=== PATIENT | male | born 1960 | race Caucasian/White ===

== ENCOUNTER 2016-11-22 13:12 | Observation (INO) | payer MEDICAID ==
[2016-11-22] MEDS ORDERED: MIDAZOLAM HCL 2 MG/2 ML SYR IV ONE (14:00)
[2016-11-22] MEDS ORDERED: LACTATED RINGERS 1,000 ML IV SCH ×3 (14:00→16:00)
[2016-11-22] MEDS ORDERED: LIDOCAINE HCL 1% 20 ML VIAL SUBCUT ONE ×2 (14:00→15:48)
[2016-11-22] MEDS ORDERED: FAMOTIDINE IN SALINE, ISO-OSM 20 MG/50 ML PIGGYBACK IV SCH ×2 (14:00→15:48)
[2016-11-22] MEDS ORDERED: ACETAMINOPHEN 1,000 MG/100 ML VIAL IV SCH ×2 (14:00→15:48)
[2016-11-22] MEDS ORDERED: FENTANYL 100 MCG/2 ML VIAL IV PRN (15:48)
[2016-11-22] MEDS ORDERED: ONDANSETRON HCL 4 MG/2 ML VIAL IV PRN ×2 (15:48→18:29)
[2016-11-22] MEDS ORDERED: HYDROmorphone HCL 1 MG/ML SYR IV PRN (15:48)
[2016-11-22 16:59] LABS: A/G RATIO 1.4; ALBUMIN 4.3 g/dL (3.5-5.0); ALKALINE PHOSPHATASE 53 U/L (38-126); ALT 63 U/L (21-72); AST 28 U/L (17-59); BLOOD UREA NITROGEN 16 mg/dL (9-20); CHLORIDE 107 mmol/L (98-107); CREATININE 1.1 mg/dL (0.7-1.3); EST GLOMERULAR FILTRATION RATE > 60 mL/min; GLUCOSE 93 mg/dL (70-100); SODIUM 143 mmol/L (137-145); TOTAL PROTEIN 7.4 g/dL (6.3-8.2)
[2016-11-22 17:11] LABS: TROPONIN I < 0.012 ng/mL (0.00-0.034)
[2016-11-22] MEDS: MORPHINE SULFATE 10 MG/ML SYR IV PRN ×2 (17:18→18:15)
[2016-11-22] MEDS ORDERED: ACETAMINOPHEN 325 MG TABLET PO PRN (18:29)
--- NOTE | 2016-11-22 20:59 | CONSULTATION ---
DATE OF CONSULTATION: 11/22/16 UNION ORGANISER: Valentina Tinoco MD REASON FOR CONSULTATION: Low heart rate. HISTORY OF PRESENT ILLNESS: This is a 55-year-old male who is followed by LUCIA Walsh at [facility], who was brought to the operating room today for removal of a rectal mass. When he was brought back to the post anesthesia care unit, he developed bradycardia in the 30s with hypoxemia in the 80s. The bradycardia was intermittent and lasted several minutes. A nonrebreather mask was placed, and he very quickly thereafter became responsive and appropriate. He states that he was having some facial itching, but otherwise was not having any chest pain or shortness of breath. He is awake, alert and oriented x3, and was answering questions appropriately. He stated he was not having any throat swelling or trouble swallowing. No cough. No abdominal pain. No nausea or vomiting. PAST MEDICAL HISTORY: 1. Untreated sleep apnea. 2. Hypothyroidism. SOCIAL HISTORY: He is a former smoker. He quit 16 years ago. He is . MEDICATIONS Levothyroxine 88 mcg daily. PHYSICAL EXAMINATION VITAL SIGNS: Temperature 30.2, respiratory rate 14, heart rate was 44, then 64. Pulse oxygenation 80% on room air, now 98% on NRBM. Blood pressure 186/84. GENERAL: This is a very pleasant obese male who initially had his eyes closed, but was responsive. He ultimately was fully awake, alert and oriented x3. His cranial nerves 2-12 are grossly intact without focal deficits. SKIN: Erythematous, confluent rash of face. No urticaria. HEENT: His sclerae are clear. His TMs are clear. His nares are boggy. His oropharynx is clear. No lesions. No swelling. NECK: His neck was obese and difficult to assess jugular venous distention. No carotid bruits. LUNGS: Good aeration throughout and clear. HEART: Regular rate and rhythm in the 60s without any murmurs, rubs or gallops. ABDOMEN: Obese, soft, nontender, nondistended with good bowel sounds and no masses or hepatosplenomegaly. EXTREMITIES: Warm without any cyanosis, clubbing or edema. Nontender. Lower extremities with SCDs and ALISSON hose in place. NEUROLOGIC: Alert and oriented x3. Cranial nerves 2-12 are grossly intact without focal deficits. His motor, sensation and DTRs are intact. DATA: Initial EKG baseline artifact with sinus rhythm in 60. T-wave inversion in III which is old. No acute changes. Laboratories are pending. ASSESSMENT: This is a 55-year-old male with underlying untreated sleep apnea who presented for excision of a rectal mass and developed bradycardia and hypoxemia, greatly improving. PLAN 1. Fluids, electrolytes and nutrition: Dr. Mclean will determine when he can resume eating. Antiemetics as needed. IV fluids. 2. Cardiovascular: Patient without known coronary artery disease or underlying cardiac history. Will place him on telemetry overnight. Get an EKG in the morning. Check serial enzymes. His bradycardia was most likely related to vagal response from rectal procedure. We do not have cardiology tomorrow here at [facility]. Will request outpatient cardiology evaluation. 3. Respiratory: Patient is currently on a nonrebreather mas. Wean oxygen to keep saturations 88-90%. His lungs are clear. Apparently, outpatient sleep study has been ordered by Breanna in the past, but has not yet been done. 4. Disposition: He will be admitted to observation. Full COR. Anticipate discharge tomorrow. CC: Dr. Zeeshan Mclean; LUCIA Walsh
[2016-11-22] MEDS: MORPHINE SULFATE 2 MG/ML SYR IV PRN (23:59)
[2016-11-23] MEDS: HYDROcodone/APAP 5/325 MG 1 TAB TABLET PO PRN ×2 (00:52→04:36)
[2016-11-23] MEDS: MORPHINE SULFATE 2 MG/ML SYR IV PRN ×2 (00:54→04:12)
--- NOTE | 2016-11-23 05:49 | OPERATIVE REPORT ---
DATE OF SURGERY: 11/22/16 SURGEON: Zeeshan Mclean MD ANESTHESIA: General endotracheal by Daniela Lofton CRNA. PREOPERATIVE DIAGNOSIS: Rectal mass. POSTOPERATIVE DIAGNOSIS: Prolapsing internal hemorrhoids. PROCEDURE PERFORMED: FINDINGS: The patient had a large hemorrhoid complex in the right anterior and posterior quadrants. This almost became a bilobed hemorrhoid with papillary structures attached to it. These had been bothering him and prolapsing in the past. These had been noted on a recent colonoscopy. Both these were removed. He had a hemorrhoid on the left side in both the anterior and posterior quadrants. I do not think this was prolapsing and this was left alone at this time. He may need to have this excised at a different date. Following his procedure he had a bradycardic episode which quickly resolved. He will be admitted overnight for observation because of this. SUMMARY: The patient was taken to the operating room and placed in the supine position. He was then intubated. He was then carefully rolled and placed in a anjum-knife prone position. All bony prominences were padded and his buttock were then taped. Betadine was used to prep the rectal area and drapes applied. Marcaine 0.25% without epinephrine was infiltrated in the perianal region. The tapes were tightened and retractors were placed. The 2 papillary complexes seemed to be attached to one large hemorrhoid. This was first divided by placing Marquis Pile clamps between the tissue that joined the right anterior and posterior quadrants together. These were both then incised and over sewn with chromic sutures. Next, the skin and anoderm were incised and the skin preserved. Underneath once the vessels were exposed a Marquis Pile clamp was placed and the complex amputated. It was over sewn with 3-0 chromic in a 2- layer fashion. Attention was then moved to the right anterior quadrant where similarly the anoderm was incised circumferentially around this complex and then the complex was amputated and over sewn with a 3-0 chromic in 2 layers. When good hemostasis had been achieved the anoderm and squamous epithelium were reapproximated with running 3-0 chromic sutures. Attention was given to keeping the 2 epitheliums in the correct locations. When adequate hemostasis had been achieved and both areas were closed, a packing of hemostatic substance was placed in the rectum. A dressing was applied and the patient was rolled over into the supine position. He was then taken to the recovery room where he had a bradycardic episode. This quickly resolved and he denied any symptoms of chest pain or other discomfort. Because of this episode he will be admitted overnight for observation. BETSY
[2016-11-23 06:31] LABS: BLOOD UREA NITROGEN 12 mg/dL (9-20); CALCIUM 8.5 mg/dL (8.4-10.2); CHLORIDE 108 mmol/L (98-107); EST GLOMERULAR FILTRATION RATE > 60 mL/min; GLUCOSE 95 mg/dL (70-100); POTASSIUM 4.2 mmol/L (3.5-5.1); SODIUM 141 mmol/L (137-145)
[2016-11-23 06:38] VITALS: RESP 16
[2016-11-23 07:02] LABS: TROPONIN I < 0.012 ng/mL (0.00-0.034)
[2016-11-23 07:34] LABS: BAND% (Manual) 1 % (0.0-1.0); BASOPHIL % (Manual) 0 % (0.0-2.0); EOSINOPHIL % (Manual) 0 % (0.0-6.0); LYMPHOCYTE % (Manual) 26 % (20.0-40.0); METAMYELOCYTE % (Manual) 0 % (0); MONOCYTE % (Manual) 7 % (2.0-10.0); MYELOCYTE % (Manual) 0 % (0); NEUTROPHIL % (Manual) 64 % (54.0-75.0); NUCLEATED RED BLOOD CELL 0 #/100WBC (0-0); PLASMA CELL % (Manual) 0 (0); PLATELET ESTIMATE DECREASED; PROMYELOCYTE % (Manual) 0 % (0)
[2016-11-23 07:36] LABS: HEMATOCRIT 38.8 % (42.0-54.0); HEMOGLOBIN 12.7 g/dL (14.0-18.0); RED BLOOD COUNT 3.95 X 10^6uL (4.20-6.10); WHITE BLOOD COUNT 8.8 X 10^3uL (3.9-10.7)
[2016-11-23 07:37] LABS: MEAN CORPUS. HGB CONCENTRATION 32.7 g/dL (32.0-36.0); MEAN CORPUSCULAR HEMOGLOBIN 32.1 pg (29.0-35.0); PLATELET COUNT 122 X 10^3uL (130-440)
[2016-11-23] MEDS ORDERED: HYDROmorphone HCL 1 MG/ML SYR IV PRN (08:52)
[2016-11-23] MEDS ORDERED: LEVOTHYROXINE SODIUM 88 MCG PO SCH (09:00)
[2016-11-23] MEDS ORDERED: OXYCODONE HCL 20 MG PO SCH (09:00)
[2016-11-23] MEDS ORDERED: LEVOTHYROXINE 88 MCG TABLET PO SCH (09:00)
--- NOTE | 2016-11-23 09:05 | DC SUMMARY: Gen Surgery Note ---
Discharge Summary: Surg/OB Provider: Date of Admission: 11/22/16 Admitting Provider: KATERIN DOTY MD Attending Provider: KATERIN DOTY MD Discharging Provider: KATERIN DOTY MD Primary Care Provider: Discharge Date: 11/23/16 - Diagnosis (1) Bradycardia Status: Resolved (2) Post-op pain Status: Acute Hospital Course: Mr. JEFFERS is a 55 year old male who underwent and extensive hemorrhoidectomy yesterday. In PACU he had a bradycardiac episode so he was admitted overnight. He had problems with pain control last night. He had difficulty with ambulation causing increased pain. On exam he has a small hemorrhoid which was not removed and it appears to have thrombosed which may be contributing to the pain. We will try and adjust his meds. this morning so we can hopefully discharge him later today. Discharge - Patient/Caregiver Discharge Instructions Activity Level: as tolerated Diet: regular Follow up: KATERIN DOTY MD [ACTIVE (Staff Physician)] - 11/30/16 11:00 am Overall discharge status: other (having pain control issues.) Home Medications: Gabapentin [Neurontin*] 300 mg PO ONCE #20 capsule oxyCODONE HCL IR [Oxy Ir*] 5 mg PO Q3H PRN #40 tablet PRN Reason: Pain, Severe Able To Take Po oxyCODONE HCL CR [OxyCONTIN CR] 10 mg PO Q12H #40 tab.er.12h Gen Surgery: Discharge Exam - Latest Vital Signs and I&O Latest Vital Signs/I&O: Vital Signs Temp 36.9 C 11/23/16 06:57 Pulse 62 11/23/16 06:37 Resp 16 11/23/16 06:37 BP 124/70 11/23/16 06:37 Pulse Ox 96 11/23/16 06:37 Intake & Output 11/22/16 11/23/16 11/23/16 17:59 05:59 17:59 Intake Total 600 590 Balance 600 590 Weight 117.934 kg 117.934 kg Intake: IV 400 Left Hand 400 Oral 200 590 Other: Voiding Method Toilet # Voids 3 - Exam Rectum: other (He has some bloody drainage but no active bleeding. He has a small hemorrhoid between the ant. right and left quadrants which may have thrombosed.) Hemorrhoids: large (on the left. These were left alone.) Discharge Summary Data - Medication History Medication History: Home Medications Levothyroxine Sodium 88 mcg PO DAILY 11/21/16 Magnesium Glycinate 1 tab PO 11/21/16 Inpatient Medications 11/22/16 15:48 Acetaminophen [Ofirmev Inj] 1,000 mg IV ONCE Famotidine in Saline, Iso-Osm [Pepcid Injection] 20 mg IV .PRE OP Fentanyl [Sublimaze] 12.5 - 50 mcg IV Q5M PRN HYDROmorphone HCL [dilaUDID] 0.5 mg IV Q5M PRN Ondansetron HCl [Zofran] 4 mg IV ONCE PRN oxyCODONE HCL IR [Oxy Ir] 5 mg PO Q3H PRN proMETHazine HCL [Phenergan Inj] 12.5 mg IV ONCE PRN 11/22/16 18:29 Acetaminophen [Tylenol] 650 mg PO Q6H PRN HYDROcodone/APAP 5/325 MG [[place]] 1 tab PO Q4H PRN Ondansetron HCl [Zofran] 4 mg IV Q4H PRN 11/23/16 08:52 HYDROmorphone HCL [dilaUDID] 1 - 2 mg IV Q4H PRN 11/23/16 09:00 Gabapentin [Neurontin] 300 mg PO ONCE ONE Levothyroxine Sodium 88 mcg PO DAILY oxyCODONE HCL CR [OxyCONTIN CR] 20 mg PO Q12H Procedures and tests throughout hospitalization: Completed Lab Orders 11/22/16 16:37 COMPREHENSIVE METABOLIC PANEL [CHEM] Stat TROPONIN I [CHEM] Stat 11/22/16 23:00 TROPONIN I [CHEM] Routine 11/23/16 05:45 BASIC METABOLIC PANEL [CHEM] Routine CBC W/ MANUAL DIFFERENTIAL [HEM] Routine TROPONIN I [CHEM] AMDRAW Pending Orders 11/21/16 13:09 Insert Peripheral IV ONCE NPO After midnight 0000 No Antibiotics indicated . Pre-op by anesthesia . 11/22/16 15:48 Zay hugger if temp <34 C PRN Titrate Oxygen TITRATE B/W 90-95% Warm blankets if temp<36 C PRN Acetaminophen [Ofirmev Inj] 1,000 mg IV ONCE Famotidine in Saline, Iso-Osm [Pepcid Injection] 20 mg IV .PRE OP Fentanyl [Sublimaze] 12.5 - 50 mcg IV Q5M PRN HYDROmorphone HCL [dilaUDID] 0.5 mg IV Q5M PRN Ondansetron HCl [Zofran] 4 mg IV ONCE PRN oxyCODONE HCL IR [Oxy Ir] 5 mg PO Q3H PRN proMETHazine HCL [Phenergan Inj] 12.5 mg IV ONCE PRN 11/22/16 18:27 Admit: Observation Routine 11/22/16 18:28 Activity [Activity: As Tolerated] PRN VS [Vital Signs] ROUTINE VITALS (Q4H) 11/22/16 18:29 Activity: As Tolerated PRN Insert [place] Catheter - PRN PRN Resuscitation Status Routine Titrate Oxygen TITRATE TO >90% Acetaminophen [Tylenol] 650 mg PO Q6H PRN HYDROcodone/APAP 5/325 MG [[place]] 1 tab PO Q4H PRN Ondansetron HCl [Zofran] 4 mg IV Q4H PRN 11/22/16 18:30 Dressing Change PRN 11/23/16 08:52 HYDROmorphone HCL [dilaUDID] 1 - 2 mg IV Q4H PRN 11/23/16 09:00 Gabapentin [Neurontin] 300 mg PO ONCE ONE Levothyroxine Sodium 88 mcg PO DAILY oxyCODONE HCL CR [OxyCONTIN CR] 20 mg PO Q12H 11/23/16 Breakfast Regular [DIET] Labs on day of discharge: Labs from last 24 hours 11/23/16 11/22/16 11/22/16 05:45 23:00 16:37 WBC 8.8 RBC 3.95 L Hgb 12.7 L Hct 38.8 L MCV 98.0 MCH 32.1 MCHC 32.7 RDW Not Reportable Plt Count 122 L MPV Not Reportable Total Counted 100 Neutrophils % Cancelled Neutrophils % (Manual) 64 Band Neuts % (Manual) 1 Lymphocytes % Cancelled Lymphocytes % (Manual) 26 Atypical Lymphs % (Man) 2 Monocytes % (Manual) 7 Eosinophils % Cancelled Eosinophils % (Manual) 0 Basophils % Cancelled Basophils % (Manual) 0 Metamyelocytes % (Man) 0 Myelocytes % (Man) 0 Promyelocytes % (Man) 0 Blast Cells % (Manual) 0 Plasma Cell % (Manual) 0 Neutrophils # Cancelled Lymphocytes # Cancelled Monocytes Cancelled Monocytes # Cancelled Eosinophils # Cancelled Basophils # Cancelled Nucleated RBCs 0 Platelet Estimate Decreased Sodium 141 143 Potassium 4.2 4.0 Chloride 108 H 107 Carbon Dioxide 25 23 BUN 12 16 Creatinine 1.0 1.1 GFR Calculation > 60 > 60 Glucose 95 93 Calcium 8.5 9.0 Total Bilirubin 1.0 AST 28 ALT 63 Alkaline Phosphatase 53 Troponin I < 0.012 < 0.012 < 0.012 Total Protein 7.4 Albumin 4.3 Albumin/Globulin Ratio 1.4
[2016-11-23] MEDS ORDERED: GABAPENTIN 300 MG CAPSULE PO SCH (09:30)
[2016-11-23 09:42] VITALS: O2SAT 94
[2016-11-23 11:31] VITALS: BP 134/60; PULSE 67; TEMP 97.6
--- NOTE | 2016-11-28 14:17 | PREOPERATIVE H&P ---
History of Present Illness (Zeeshan Mclean M.D.; 11/16/2016 7:03 PM) The patient is a 55 year old male who presents with anal lesions. The last clinic visit was 1 week ago, colonoscopy where the lesions were noted. No changes in management were made at the last visit. Symptoms include anorectal mass, bright red rectal bleeding, swelling, anorectal drainage, fecal incontinence, discharge and prolapsing anal mass, while symptoms do not include painful defecation. Onset was gradual over 10 years. There is no known event that preceded symptom onset. The patient describes this as severe, difficulty cleaning himself, and worsening. Symptoms are exacerbated by bowel movements, hard stools and straining. Symptoms are not relieved by topical anal creams, sitz baths, stool softeners, laxatives, analgesics or fiber supplement. Associated symptoms include diarrhea, while associated symptoms do not include fever, chills, weight loss, anal stenosis or hemorrhoids. The patient is not currently being treated for this problem. Pertinent medical history does not include inflammatory bowel disease or Crohn disease. Pertinent family history does not include inflammatory bowel disease or Crohn disease. Allergies (Shantelle Mendoza; 11/16/2016 3:45 PM) No Known [id number] Social History (Shantelle Mendoza; 11/16/2016 3:47 PM) Tobacco use Former smoker, Age quit smoking. quit 16 years ago Medication History (Shantelle Mendoza; 11/16/2016 3:48 PM) Levothyroxine Sodium (88MCG Tablet, Oral daily) Active. Medications Reconciled Review of Systems (Zeeshan Mclean M.D.; 11/16/2016 7:06 PM) General Present- Feeling well. Not Present- Chills and Fever. Skin Not Present- Bruising and Jaundice . Respiratory Present- Snoring. Not Present- Asthma and Lung Problems. Cardiovascular Present- Murmur (MVP). Not Present- Chest Pain. Gastrointestinal Present- Diarrhea, GI Problems and Rectal Bleeding (small amounts.). Not Present- Abdominal Pain and Bloating. Male Genitourinary Present- Testicular Mass (left hydrocele removed 3 months ago.). Not Present- Kidney Stones. Musculoskeletal Present- Arthralgia and Joint Pain (bilateral knee pain). Neurological Not Present- Seizures and Tremor. Endocrine Present- Thyroid Problems (hypothyroid). Not Present- Diabetes. Hematology Not Present- Anemia and Blood Clots. Vitals (Shantelle Mendoza; 11/16/2016 3:51 PM) 11/16/2016 3:49 PM Weight: 257.9 lb Temp.: 97.6F Pulse: 79 (Regular) Resp.: 16 (Unlabored) P.OX: 92% ( Room air) BP: 120/75 (Sitting, Left Arm, Standard) Physical Exam (Zeeshan Mclean M.D.; 11/16/2016 7:09 PM) General Mental Status-Alert. General Appearance-Not Anxious. Orientation-Oriented X3. Chest and Lung Exam Chest and lung exam reveals -Clear. Cardiovascular Cardiovascular examination reveals -RRR, No murmurs present(I could not hear a murmur). Abdomen Inspection Hernias - Direct umbilical hernia - Non-reducible. Note: 1cm non tender hernia. Palpation/Percussion Palpation and Percussion of the abdomen reveal - Soft and Non Tender. Male Genitourinary Testes - Left-Cystic(This appears to be postop from his hydrocelectomy.). Rectal Proctoscopic exam-Pedunculated polyp(On colonoscopy I was able to be present for the exam. There appeared to be a bilobed polyp with a single stalk. This appeared to be consistent with a hypertrophic papillae of the anus. I was not able to orient myself during the exam.). Assessment & Plan (Zeeshan Mclean M.D.; 11/16/2016 7:12 PM) Rectal mass (K62.9) Current Plans EXCISION OF ANAL MASS (80720) Note:Because this mass is so large and he is symptomatic I recommend he have transanal excision of the mass. We will plan to do this as an outpatient surgery. I discussed the procedure with him. I told him I thought I could remove the entire mass but it is possible that we could only get a portion of the mass out initially. This would at least give us a diagnosis. If I had to refer him for a more extensive excision that we would have the diagnosis. He was agreeable to this and we will work on getting this scheduled for next week. Medical Decision Making (Zeeshan Mclean M.D.; 11/16/2016 7:13 PM) Approximately a total of 30 minutes spent in discussion with more than 50% spent in counseling. Signed by Zeeshan Mclean M.D. (11/16/2016 7:13 PM) BETSY
== END 2016-11-23 13:00 | disposition home or self-care (01) ==
LOC: SDS 13:12 → IN 17:14
PROVIDERS: ADMIT Surgery; ATTEND Surgery
DX: R00.1 Bradycardia, unspecified (principal); R09.02 Hypoxemia; K64.1 Second degree hemorrhoids; K62.89 Other specified diseases of anus and rectum; G89.18 Other acute postprocedural pain; G47.30 Sleep apnea, unspecified; E03.9 Hypothyroidism, unspecified; Z79.899 Other long term (current) drug therapy
CPT/HCPCS: 36415; 80048; 80053; 84484; 85007; 85027; 93041; 96375; 96376; G0378; J1170; J2250; J2270